=== PATIENT | female | born 1990 | race Caucasian/White ===

== ENCOUNTER 2018-10-02 13:25 | Emergency (ER) | payer BC ==
[2018-10-02 13:38] VITALS: RESP 20; O2SAT 99
--- NOTE | 2018-10-02 14:26 | C.PDOC ---
History Of Present Illness 28 y/o female with history of anxiety and HTN presents to the ED for medical evaluation for sore throat for the past 2 days with associated subjective fever, headache, dizziness, and neck pain. She states is began with swollen glands in the neck which later developed to sore throat. She rates the pain a 7/10. She Admits to taking Advil and Amoxicillin (from last year) [employer] HEL[employer]. She denies any weakness, cough, chest pain, SOB, N/V/D. Time Seen by Provider: 10/02/18 13:40 Chief Complaint (Nursing): ENT Problem History Per: Patient, Family History/Exam Limitations: no limitations Onset/Duration Of Symptoms: Days Current Symptoms Are (Timing): Still Present Location Of Pain: Throat, Headache Sick Contacts (Context): None Associated Symptoms: Fever (subjective), Sore Throat, Neck Pain. denies: Cough, Sinus Drainage, Myalgias, Nasal Congestion, Nausea, Vomiting, Diarrhea Ear Symptoms: Bilateral: None Past Medical History Reviewed: Historical Data, Nursing Documentation, Vital Signs Vital Signs: Last Vital Signs Temp 98.3 F 10/02/18 13:34 Pulse 98 H 10/02/18 13:34 Resp 20 10/02/18 13:34 BP 171/110 H 10/02/18 13:34 Pulse Ox 99 10/02/18 13:34 - Medical History PMH: HTN (at times) Family History: States: Unknown Family Hx - Social History Hx Tobacco Use: No Hx Alcohol Use: No Hx Substance Use: No - Immunization History Hx Tetanus Toxoid Vaccination: No Hx Influenza Vaccination: No Hx Pneumococcal Vaccination: No Review Of Systems Constitutional: Positive for: Fever (subjective). Negative for: Sweats, Weakness Eyes: Negative for: Vision Change ENT: Negative for: Nose Discharge, Nose Congestion Cardiovascular: Negative for: Chest Pain Respiratory: Negative for: Cough, Shortness of Breath Gastrointestinal: Negative for: Nausea, Vomiting, Abdominal Pain Musculoskeletal: Positive for: Neck Pain Skin: Negative for: Rash Neurological: Positive for: Headache, Dizziness Physical Exam - Physical Exam Appears: Non-toxic, No Acute Distress, Other (anxious) Skin: Normal Color, Warm, Dry, No Rash Head: Atraumatic, Normacephalic, No Tenderness Eye(s): bilateral: Normal Inspection, PERRL Ear(s): Bilateral: Normal Nose: No Discharge, Other (moderate turbinate hypertrophy bilaterally) Oral Mucosa: Moist Tongue: Normal Appearing Lips: Normal Appearing Throat: Erythema, No Exudate, Other (tonsillar hypertrophy b/l) Neck: Normal ROM, Trachea Midline, Other (b/l submandibulad LAD; slight pain to palpation on left lateral neck; no nuchal rigidity ) Chest: Symmetrical Cardiovascular: Rhythm Regular Respiratory: Normal Breath Sounds, No Wheezing Gastrointestinal/Abdominal: Soft, No Tenderness Back: No CVA Tenderness Extremity: Normal ROM Extremity: Bilateral: Atraumatic Neurological/Psych: Oriented x3, Normal Speech, Normal Motor, Normal Sensation ED Course And Treatment O2 Sat by Pulse Oximetry: 99 Medical Decision Making Medical Decision Making: Viral URI/ anxiety VSS, Afebrile Plan: Sudafed and Tylenol given now Rapid strep neg Recommend rest and hydration Alternate with Motrin and Tylenol if you experience Fever Start Flonase and continue Sudafed Salt water gargles 4 times a day for sore throat Chloraseptic lozenges/ spray as needed for sore throat Patient verbalized understanding and is in agreement with plan patient is stable for discharge Disposition Counseled Patient/Family Regarding: Studies Performed, Diagnosis, Need For Followup, Rx Given - Disposition Referrals: [place] [facility] [place] [Outside] [facility] [Outside] [facility] [Outside] [facility] [Outside] [facility] [Outside] Disposition: HOME/ ROUTINE Disposition Time: 14:32 Condition: IMPROVED Additional Instructions: Rest and Hydration Alternate with Motrin and Tylenol if you experience Fever Start Flonase and continue Sudafed Salt water gargles 4 times a day for sore throat Chloraseptic lozenges/ spray as needed for sore throat Follow up with PMD or Clinic in 1-2 days Return to ED if you develop high fever, "worst headache of your life", dizziness, neck stiffness, weakness, and vomiting Prescriptions: D-Methorphan/PE/Acetaminophen [Tylenol Cold Multi-Symp Caplet] 1 each PO Q6 #28 tablet Fluticasone Propionate [Flonase] 1 spr NS BID #1 bottle Ibuprofen [Motrin] 400 mg PO Q6 PRN #30 tab PRN Reason: Pain, Moderate (4-7) Instructions: Sore Throat, Adult (DC), Viral Upper Respiratory Infection, Adult (DC) Forms: [facility] (Albanian), Work Excuse - Clinical Impression Clinical Impression: Viral URI, Sore throat (viral), Anxiety - PA / GRADUATE RESEARCH ASSISTANT / Resident Statement MD/DO has examined the patient and agrees with the treatment plan.
--- NOTE | 2018-10-02 14:30 | C.PDOC ---
History Of Present Illness 28 year old female presents to ED with complaint of sore throat for the past 2 days. She also states that she noticed that her lymph nodes were swollen around her neck and that she developed a subjective last night. Patient also complains of headache and neck pain. She states that she took Advil with no relief. Patient presents today because of worsening pain in the throat and states that it is affecting her breathing. She states that she took an amoxicillin from last year for an infection this morning. Patient denies sick contacts at home or work. She denies weakness, cough, chest pain, SOB, nausea, vomiting, and abdominal pain. Time Seen by Provider: 10/02/18 13:40 Chief Complaint (Nursing): ENT Problem History Per: Patient History/Exam Limitations: no limitations Onset/Duration Of Symptoms: Days (2) Current Symptoms Are (Timing): Still Present Location Of Pain: Throat, Headache Sick Contacts (Context): None Associated Symptoms: Fever, Sore Throat, Neck Pain. denies: Chills, Cough, Sputum, Nausea, Vomiting Past Medical History Reviewed: Historical Data, Nursing Documentation, Vital Signs Vital Signs: Last Vital Signs Temp 98.3 F 10/02/18 13:34 Pulse 98 H 10/02/18 13:34 Resp 20 10/02/18 13:34 BP 171/110 H 10/02/18 13:34 Pulse Ox 99 10/02/18 14:26 - Medical History PMH: HTN (at times) Surgical History: No Surg Hx Family History: States: Unknown Family Hx - Social History Hx Alcohol Use: No Hx Substance Use: No - Immunization History Hx Tetanus Toxoid Vaccination: No Hx Influenza Vaccination: No Hx Pneumococcal Vaccination: No Review Of Systems Constitutional: Positive for: Fever. Negative for: Chills, Weakness ENT: Positive for: Throat Pain, Other (lymph nodes swollen) Cardiovascular: Negative for: Chest Pain Respiratory: Negative for: Cough, Shortness of Breath Gastrointestinal: Negative for: Vomiting, Abdominal Pain Musculoskeletal: Positive for: Neck Pain Neurological: Positive for: Headache. Negative for: Weakness, Numbness, Dizziness Physical Exam - Physical Exam Appears: Well, Non-toxic, No Acute Distress Skin: Normal Color, Warm, Dry Head: Atraumatic, Normacephalic Nose: Other (erythema with turbinate hypertrophy bilaterally) Neck: Other (tonsillar hypertrophy bilaterally, mild erythema, no exudate, mild submandibular adenopathy) Chest: Symmetrical, No Deformity Cardiovascular: Rhythm Regular, No Murmur Respiratory: No Accessory Muscle Use, No Rales, No Rhonchi, No Wheezing Gastrointestinal/Abdominal: Soft, No Tenderness Neurological/Psych: Oriented x3, Normal Speech, Normal Cognition ED Course And Treatment O2 Sat by Pulse Oximetry: 99 (in RA) Medical Decision Making Medical Decision Making: Impression: 28 year old female with complaint of sore throat, headache, neck pain, and fever Plan: Sudafed PO Tylenol PO Throat culture Rapid strep Disposition - Disposition Forms: [email or web address] (Indonesian) - PA / MILL CONTROLLER / Resident Statement MD/DO has reviewed & agrees with the documentation as recorded. (Kayleen Ellison) - Scribe Statement The provider has reviewed the documentation as recorded by the Scribe (Kayleen Ellison) All medical record entries made by the Scribe were at my direction and personally dictated by me. I have reviewed the chart and agree that the record accurately reflects my personal performance of the history, physical exam, medical decision making, and the department course for this patient. I have also personally directed, reviewed, and agree with the discharge instructions and disposition.
[2018-10-02 14:48] VITALS: BP 147/101; PULSE 85; TEMP 98.2
== END 2018-10-02 14:49 | disposition home or self-care (01) ==
LOC: C.ER 13:25
DX: J02.9 Acute pharyngitis, unspecified (principal); F41.9 Anxiety disorder, unspecified